=== PATIENT | male | born 1960 | race Two or more races ===

== ENCOUNTER 2022-09-17 05:35 | Day surgery (SDC) | payer OTHER ==
[~2022-09-17 05:35] MED LIST: COZAAR25 MG PO; TENORMIN25 MG PO
[2022-09-17] MEDS ORDERED: TRAM1TAB98 PO (08:34)
== END 2022-09-17 09:55 | disposition home or self-care (01) ==
LOC: CIR.AMB 05:35 → EDBD 11:00 → CIR.AMB 11:00
PROVIDERS: ATTEND Surgery
DX: C20 Malignant neoplasm of rectum (principal); K62.5 Hemorrhage of anus and rectum; R59.0 Localized enlarged lymph nodes; K59.09 Other constipation; I10 Essential (primary) hypertension; F17.210 Nicotine dependence, cigarettes, uncomplicated; Z20.822 Contact with and (suspected) exposure to COVID-19

== ENCOUNTER 2023-09-06 09:56 | Inpatient (IN) | payer OTHER ==
[~2023-09-06] VITALS: Ht 170.2 cm; Wt 79.4 kg
[~2023-09-06 09:56] MED LIST changes: +TRAM1TAB98 PO
[2023-09-13] MEDS ORDERED: METRONIDAZOLE/SODIUM CHLORIDE 500 MG/100 ML PIGGYBACK IV ONE ×2 (10:09→13:00)
[2023-09-13] MEDS ORDERED: CEFTRIAXONE SODIUM 2,000 MG VIAL ONE (10:09)
[2023-09-13] MEDS ORDERED: CEFTRIAXONE SODIUM 2,000 MG VIAL IV ONE (13:00)
[2023-09-13] MEDS ORDERED: VISTASEAL DUAL APPICATOR 1 EACH APPL TOP ONE (14:10)
[2023-09-13] MEDS ORDERED: THROMBIN,HU/FIBRINOGEN/CALCIUM 10 ML SYRINGE TOP ONE (14:10)
[2023-09-13] MEDS ORDERED: INSULIN LISPRO 1,000 UNIT/10 ML UNITS SUBCUTANEO PRN (15:15)
[2023-09-13] MEDS ORDERED: MORPHINE SULFATE 4 MG/ML VIAL IV PRN (15:15)
[2023-09-13] MEDS ORDERED: ONDANSETRON HCL 2 MG/ML VIAL IV PRN (15:15)
[2023-09-13] MEDS ORDERED: DEXTROSE 50 % IN WATER 0.5 G/ML DISP.SYRIN IV PRN (15:15)
[2023-09-13] MEDS ORDERED: RINGERS SOLUTION,LACTATED 1,000 ML IV SCH (15:15)
[2023-09-13] MEDS ORDERED: OxyCODONE HCL 5 MG TABLET (ROXICODONE) PO PRN (15:15)
[2023-09-13] MEDS ORDERED: ONDANSETRON HCL 2 MG/ML VIAL ONE (16:17)
[2023-09-13] MEDS ORDERED: GABAPENTIN 300 MG CAPSULE PO SCH (17:00)
[2023-09-13] MEDS ORDERED: HYOSCYAMINE SULFATE 0.125 MG TAB.SUBL SL SCH (17:00)
[2023-09-13] MEDS ORDERED: POLYETHYLENE GLYCOL 3350 17 GM BLIST.PACK PO SCH (17:00)
[2023-09-13] MEDS ORDERED: ENALAPRILAT DIHYDRATE 1.25 MG/ML VIAL IV PRN (17:30)
[2023-09-13] MEDS ORDERED: ALBUTEROL SULFATE 3 ML/2.5 MG AMPUL.NEB IH SCH (18:00)
[2023-09-13 19:52] LABS: HEMATOCRIT 38.7 % (39.0-48.0); HEMOGLOBIN 13.2 g/dL (13-16.00); MEAN CORPUSCULAR HEMOGLOBIN 28.3 pg (27.00-32.0); MEAN CORPUSCULAR HGB CONC 34.1 g/dl (32.0-36.0); PLATELET COUNT 154 K/uL (150-450); RED BLOOD COUNT 4.67 M/uL (4.00-6.00); RED CELL DISTRIBUTION WIDTH 14.5 % (11.5-14.5)
[2023-09-13 20:00] LABS: ALBUMIN 3.3 gm/dL (3.4-5.0); CALCIUM 8.1 mg/dL (8.5-10.1); CREATININE SERUM 0.97 mg/dL (0.70-1.30); GFR 77.92; MAGNESIUM 2.2 mg/dL (1.8-2.4); PHOSPHOROUS 3.3 mg/dL (2.5-4.9); POTASSIUM 3.85 mEq/L (3.5-5.1)
[2023-09-13] MEDS ORDERED: ACETAMINOPHEN 500 MG GEL..CAP PO SCH (20:00)
[2023-09-13] MEDS ORDERED: FAMOTIDINE/PF 20 MG/2 ML VIAL IV PUSH SCH (21:00)
[2023-09-13] MEDS ORDERED: CELECOXIB 200 MG CAPSULE PO SCH (21:00)
[2023-09-13] MEDS ORDERED: ALBUTEROL SULFATE 3 ML/2.5 MG AMPUL.NEB IH ONE (21:39)
[2023-09-13] MEDS ORDERED: FAMOTIDINE/PF 20 MG/2 ML VIAL ONE (21:39)
[2023-09-13 21:59] LABS: ABG PO2 72.7 mmHg (80-100); ABG pCO2 39.2 mmHg (35-45); BASE EXCESS 0.5 mmol/l; BICARBONATE 24.9 mmol/l (23-25); SaO2 94.7 %
[2023-09-13 22:00] LABS: Tco2 26.1 mmol/l; allen test SATISFACTORY; o2 21 %; puncture site RADIAL RIGHT
[2023-09-14 07:01] LABS: HEMATOCRIT 38.8 % (39.0-48.0); HEMOGLOBIN 13.2 g/dL (13-16.00); MEAN CELL VOLUME 83.8 fL (80.0-100.00); MEAN CORPUSCULAR HEMOGLOBIN 28.5 pg (27.00-32.0); PLATELET COUNT 158 K/uL (150-450); RED BLOOD COUNT 4.62 M/uL (4.00-6.00); RED CELL DISTRIBUTION WIDTH 14.2 % (11.5-14.5)
[2023-09-14 07:22] LABS: ALBUMIN 3.1 gm/dL (3.4-5.0); CALCIUM 8.1 mg/dL (8.5-10.1); CREATININE SERUM 0.83 mg/dL (0.70-1.30); GFR 93.27; MAGNESIUM 2.1 mg/dL (1.8-2.4); PHOSPHOROUS 3.7 mg/dL (2.5-4.9); POTASSIUM 4.01 mEq/L (3.5-5.1)
[2023-09-14] MEDS ORDERED: LOSARTAN POTASSIUM 25 MG TABLET PO SCH (09:00)
[2023-09-14] MEDS ORDERED: ATENOLOL 25 MG TABLET PO SCH (09:00)
[2023-09-14] MEDS ORDERED: TAMSULOSIN HCL 0.4 MG CAP PO SCH (09:00)
[2023-09-14] MEDS ORDERED: ALBUTEROL SULFATE 3 ML/2.5 MG AMPUL.NEB IH SCH (13:00)
[2023-09-14] MEDS ORDERED: ENOXAPARIN SODIUM 40 MG/0.4 ML SYRINGE SUBCUTANEO SCH (17:00)
[2023-09-15 04:59] LABS: HEMATOCRIT 38.8 % (39.0-48.0); HEMOGLOBIN 13.3 g/dL (13-16.00); MEAN CELL VOLUME 82.9 fL (80.0-100.00); MEAN CORPUSCULAR HEMOGLOBIN 28.3 pg (27.00-32.0); MEAN CORPUSCULAR HGB CONC 34.2 g/dl (32.0-36.0); PLATELET COUNT 167 K/uL (150-450); RED BLOOD COUNT 4.68 M/uL (4.00-6.00); RED CELL DISTRIBUTION WIDTH 14.9 % (11.5-14.5)
[2023-09-15 05:12] LABS: CALCIUM 8.4 mg/dL (8.5-10.1); CREATININE SERUM 0.88 mg/dL (0.70-1.30); GFR 87.18; MAGNESIUM 2.2 mg/dL (1.8-2.4); POTASSIUM 4.23 mEq/L (3.5-5.1)
[2023-09-15] MEDS ORDERED: ENOXAPARIN SODIUM 40 MG/0.4 ML SYRINGE SUBCUTANEO SCH (09:00)
[2023-09-16] MEDS ORDERED: METOCLOPRAMIDE HCL 5 MG/ML VIAL IV SCH (17:00)
[2023-09-17 07:19] LABS: HEMATOCRIT 37.9 % (39.0-48.0); HEMOGLOBIN 12.9 g/dL (13-16.00); MEAN CORPUSCULAR HGB CONC 34.1 g/dl (32.0-36.0); PLATELET COUNT 170 K/uL (150-450); RED BLOOD COUNT 4.46 M/uL (4.00-6.00); RED CELL DISTRIBUTION WIDTH 14.7 % (11.5-14.5)
[2023-09-17 07:38] LABS: ALBUMIN 2.7 gm/dL (3.4-5.0); CALCIUM 8.9 mg/dL (8.5-10.1); CREATININE SERUM 0.95 mg/dL (0.70-1.30); GFR 79.81; PHOSPHOROUS 4.2 mg/dL (2.5-4.9); POTASSIUM 4.3 mEq/L (3.5-5.1)
[2023-09-18] MEDS ORDERED: DEXTROSE 10 % IN WATER 500 ML IV SCH (09:45)
[2023-09-18 15:37] LABS: BILIRUBIN TOTAL 0.96 mg/dL (0.3-1.2); BILIRUBIN,CONJUGATED 0.34 mg/dL (0.0-0.2); BILIRUBIN,UNCONJUGATED 0.62 mg/dL (0.0-0.6); CALCIUM 8.8 mg/dL (8.5-10.1); CREATININE SERUM 0.88 mg/dL (0.70-1.30); GFR 87.18; POTASSIUM 4.02 mEq/L (3.5-5.1); TOTAL PROTEIN 6.3 gm/dL (6.4-8.2)
[2023-09-18] MEDS ORDERED: AMINO ACIDS 4.25 %/DEXTROSE 5% 1,000 ML PERIFERAL SCH (17:00)
[2023-09-20] MEDS ORDERED: 0.9 % SODIUM CHLORIDE 1,000 ML IV SCH (18:15)
[2023-09-21 06:18] LABS: HEMATOCRIT 39.9 % (39.0-48.0); HEMOGLOBIN 13.5 g/dL (13-16.00); MEAN CELL VOLUME 84.9 fL (80.0-100.00); MEAN CORPUSCULAR HEMOGLOBIN 28.7 pg (27.00-32.0); MEAN CORPUSCULAR HGB CONC 33.8 g/dl (32.0-36.0); PLATELET COUNT 189 K/uL (150-450); RED BLOOD COUNT 4.69 M/uL (4.00-6.00); RED CELL DISTRIBUTION WIDTH 14.9 % (11.5-14.5)
[2023-09-21 07:10] LABS: CALCIUM 8.1 mg/dL (8.5-10.1); CREATININE SERUM 0.79 mg/dL (0.70-1.30); GFR 98.74; MAGNESIUM 2.6 mg/dL (1.8-2.4); PHOSPHOROUS 3.5 mg/dL (2.5-4.9); POTASSIUM 3.85 mEq/L (3.5-5.1)
[2023-09-21] MEDS ORDERED: IOHEXOL 350 mgI/ML 50ML BOTT PO ONE (10:00)
[2023-09-23 05:59] LABS: HEMATOCRIT 38.2 % (39.0-48.0); MEAN CELL VOLUME 84.2 fL (80.0-100.00); MEAN CORPUSCULAR HEMOGLOBIN 28.6 pg (27.00-32.0); MEAN CORPUSCULAR HGB CONC 33.9 g/dl (32.0-36.0); PLATELET COUNT 193 K/uL (150-450); RED BLOOD COUNT 4.54 M/uL (4.00-6.00); RED CELL DISTRIBUTION WIDTH 14.7 % (11.5-14.5)
[2023-09-23 06:42] LABS: CALCIUM 8.1 mg/dL (8.5-10.1); CREATININE SERUM 0.68 mg/dL (0.70-1.30); GFR 117.4; MAGNESIUM 2.2 mg/dL (1.8-2.4); PHOSPHOROUS 3.2 mg/dL (2.5-4.9); POTASSIUM 3.62 mEq/L (3.5-5.1)
[2023-09-23] MEDS ORDERED: METOCLOPRAMIDE HCL 5 MG/ML VIAL IV SCH (09:00)
[2023-09-25] MEDS ORDERED: HYOSCYAMINE0.125 M1 SL (13:54)
== END 2023-09-25 15:04 | disposition home or self-care (01) | DRG 330 ==
LOC: O/R 09-13 07:23 → EDLOC 09-13 07:23 → SURH 09-13 07:23 → O/R 09-13 20:46 → SURH 09-13 20:47
PROVIDERS: Internal Medicine Geriatric Medicine; ADMIT Surgery; ATTEND Surgery
PROC: 0DBP4ZZ Excision of Rectum, Percutaneous Endoscopic Approach (ICD-10-PCS; 2023-09-13)
PROC: 0D1B4Z4 Bypass Ileum to Cutaneous, Percutaneous Endoscopic Approach (ICD-10-PCS; 2023-09-13)
PROC: 0DJD8ZZ Inspection of Lower Intestinal Tract, Via Natural or Artificial Opening Endoscopic (ICD-10-PCS; 2023-09-13)
PROC: 07BC4ZZ Excision of Pelvis Lymphatic, Percutaneous Endoscopic Approach (ICD-10-PCS; 2023-09-13)
PROC: 3E0F7GC Introduction of Other Therapeutic Substance into Respiratory Tract, Via Natural or Artificial Opening (ICD-10-PCS; 2023-09-13)
PROC: 0DTN4ZZ Resection of Sigmoid Colon, Percutaneous Endoscopic Approach (ICD-10-PCS; principal; 2023-09-13 13:00)
PROC: 0DH68UZ Insertion of Feeding Device into Stomach, Via Natural or Artificial Opening Endoscopic (ICD-10-PCS; 2023-09-17)
PROC: 02HV33Z Insertion of Infusion Device into Superior Vena Cava, Percutaneous Approach (ICD-10-PCS; 2023-09-20)
PROC: BW21YZZ Computerized Tomography (CT Scan) of Abdomen and Pelvis using Other Contrast (ICD-10-PCS; 2023-09-21)
DX: C20 Malignant neoplasm of rectum (principal); K62.5 Hemorrhage of anus and rectum; R59.0 Localized enlarged lymph nodes; K59.09 Other constipation; G47.30 Sleep apnea, unspecified; J45.998 Other asthma; I10 Essential (primary) hypertension

== ENCOUNTER 2024-01-26 10:39 | Inpatient (IN) | payer OTHER ==
[~2024-01-26] VITALS: Ht 170.2 cm; Wt 69.4 kg
[~2024-01-26 10:39] MED LIST changes: +HYOSCYAMINE0.125 M1 SL
[2024-02-03] MEDS ORDERED: LOSARTAN POTASS25 MG (11:15)
[2024-02-03] MEDS ORDERED: ATENOLOL25 MG (11:15)
[2024-02-03] MEDS ORDERED: PROVENTIL HFA6.7 GM (11:16)
[2024-02-03] MEDS ORDERED: OxyCODONE HCL 5 MG TABLET (ROXICODONE) PO PRN (13:00)
[2024-02-03] MEDS ORDERED: ONDANSETRON HCL 2 MG/ML VIAL IV PRN (13:00)
[2024-02-03] MEDS ORDERED: RINGERS SOLUTION,LACTATED 1,000 ML IV SCH (13:00)
[2024-02-03] MEDS ORDERED: DEXTROSE 50 % IN WATER 0.5 G/ML VIAL IV PRN (13:00)
[2024-02-03] MEDS ORDERED: MORPHINE SULFATE 4 MG/ML CARTRIDGE IV PRN (13:00)
[2024-02-03] MEDS ORDERED: METRONIDAZOLE/SODIUM CHLORIDE 500 MG/100 ML PIGGYBACK IV ONE (13:15)
[2024-02-03] MEDS ORDERED: CEFTRIAXONE SODIUM 2,000 MG VIAL IV ONE (13:15)
[2024-02-03] MEDS ORDERED: LIDOCAINE HCL 1%/EPINEPHRINE 20ML VIAL IJ ONE (13:15)
[2024-02-03] MEDS ORDERED: CHLORHEXIDINE GLUCONATE 120 ML BOTTLE TOP ONE (13:15)
[2024-02-03] MEDS ORDERED: DEXAMETHASONE SODIUM PHOSPHATE 4 MG/ML VIAL IV ONE (13:15)
[2024-02-03] MEDS ORDERED: VANCOMYCIN HCL 1,000 MG VIAL IV ONE (13:15)
[2024-02-03] MEDS ORDERED: ACETAMINOPHEN 500 MG GEL..CAP PO SCH (14:00)
[2024-02-03] MEDS ORDERED: ENALAPRILAT DIHYDRATE 1.25 MG/ML VIAL IV PRN (15:45)
[2024-02-03] MEDS ORDERED: GABAPENTIN 300 MG CAPSULE PO SCH (17:00)
[2024-02-03] MEDS ORDERED: POLYETHYLENE GLYCOL 3350 17 GM BLIST.PACK PO SCH (17:00)
[2024-02-03] MEDS ORDERED: METOCLOPRAMIDE HCL 5 MG/ML VIAL IV SCH (17:00)
[2024-02-03 17:17] LABS: HEMATOCRIT 39.1 % (39.0-48.0); HEMOGLOBIN 13.4 g/dL (13-16.00); MEAN CELL VOLUME 82.7 fL (80.0-100.00); MEAN CORPUSCULAR HEMOGLOBIN 28.4 pg (27.00-32.0); MEAN CORPUSCULAR HGB CONC 34.4 g/dl (32.0-36.0); PLATELET COUNT 159 K/uL (150-450); RED BLOOD COUNT 4.73 M/uL (4.00-6.00); RED CELL DISTRIBUTION WIDTH 14.4 % (11.5-14.5)
[2024-02-03 17:37] LABS: ALBUMIN 3.5 gm/dL (3.4-5.0); CALCIUM 8.5 mg/dL (8.5-10.1); CREATININE SERUM 0.91 mg/dL (0.70-1.30); GFR 83.61; MAGNESIUM 1.9 mg/dL (1.8-2.4); PHOSPHOROUS 3.4 mg/dL (2.5-4.9); POTASSIUM 3.84 mEq/L (3.5-5.1)
[2024-02-03] MEDS ORDERED: PIPERACILLIN/TAZOBACTAM SODIUM 3.375 GM in DEXTROSE 5 % IN WATER 100 ML IV SCH (18:00)
[2024-02-03] MEDS ORDERED: ALBUTEROL SULFATE 3 ML/2.5 MG AMPUL.NEB IH SCH (18:00)
[2024-02-03 18:49] LABS: ABG PH 7.393 (7.35-7.45); ABG PO2 159.8 mmHg (80-100); ABG pCO2 37.2 mmHg (35-45); BASE EXCESS -2.2 mmol/l; BICARBONATE 22.2 mmol/l (23-25); SaO2 99.4 %; Tco2 23.3 mmol/l
[2024-02-03] MEDS ORDERED: FAMOTIDINE/PF 20 MG/2 ML VIAL IV PUSH SCH (21:00)
[2024-02-03 23:09] LABS: allen test SATISFACTORY; o2 21 %; puncture site RADIAL RIGHT
[2024-02-04] MEDS ORDERED: ATENOLOL 25 MG TABLET PO SCH (09:00)
[2024-02-04] MEDS ORDERED: LOSARTAN POTASSIUM 25 MG TABLET PO SCH (09:00)
[2024-02-04 09:37] LABS: HEMATOCRIT 37.4 % (39.0-48.0); MEAN CELL VOLUME 82.4 fL (80.0-100.00); MEAN CORPUSCULAR HEMOGLOBIN 28.7 pg (27.00-32.0); MEAN CORPUSCULAR HGB CONC 34.9 g/dl (32.0-36.0); PLATELET COUNT 158 K/uL (150-450); RED BLOOD COUNT 4.54 M/uL (4.00-6.00); RED CELL DISTRIBUTION WIDTH 14.7 % (11.5-14.5)
[2024-02-04 09:54] LABS: ALBUMIN 3.2 gm/dL (3.4-5.0); CREATININE SERUM 0.88 mg/dL (0.70-1.30); GFR 86.91; MAGNESIUM 2.1 mg/dL (1.8-2.4); PHOSPHOROUS 3.9 mg/dL (2.5-4.9)
[2024-02-04] MEDS ORDERED: ENOXAPARIN SODIUM 40 MG/0.4 ML SYRINGE SUBCUTANEO SCH (17:00)
[2024-02-05 08:38] LABS: HEMATOCRIT 38.1 % (39.0-48.0); HEMOGLOBIN 13.1 g/dL (13-16.00); MEAN CELL VOLUME 82.5 fL (80.0-100.00); MEAN CORPUSCULAR HEMOGLOBIN 28.3 pg (27.00-32.0); MEAN CORPUSCULAR HGB CONC 34.3 g/dl (32.0-36.0); PLATELET COUNT 170 K/uL (150-450); RED BLOOD COUNT 4.62 M/uL (4.00-6.00); RED CELL DISTRIBUTION WIDTH 14.9 % (11.5-14.5)
[2024-02-05 08:48] LABS: CALCIUM 8.9 mg/dL (8.5-10.1); CREATININE SERUM 0.9 mg/dL (0.70-1.30); GFR 84.69; MAGNESIUM 2.2 mg/dL (1.8-2.4); PHOSPHOROUS 3.6 mg/dL (2.5-4.9); POTASSIUM 3.63 mEq/L (3.5-5.1)
[2024-02-05] MEDS ORDERED: ENOXAPARIN SODIUM 40 MG/0.4 ML SYRINGE SUBCUTANEO SCH (17:00)
[2024-02-06] MEDS ORDERED: ACETAMINOPHEN500 M2 PO (07:58)
[2024-02-06] MEDS ORDERED: NEURONTIN300 MG PO (07:58)
[2024-02-06] MEDS ORDERED: ACID REDUCER20 M1 PO (07:58)
[2024-02-06] MEDS ORDERED: INTESTINEX680 M1 PO (07:58)
== END 2024-02-06 11:41 | disposition home or self-care (01) | DRG 348 ==
LOC: O/R 02-03 08:18 → SURH 02-03 10:30
PROVIDERS: Internal Medicine Geriatric Medicine; ADMIT Surgery; ATTEND Surgery
PROC: 05PYX3Z Removal of Infusion Device from Upper Vein, External Approach (ICD-10-PCS; 2024-02-03)
PROC: 3E0F7GC Introduction of Other Therapeutic Substance into Respiratory Tract, Via Natural or Artificial Opening (ICD-10-PCS; 2024-02-03)
PROC: 4A12X4Z Monitoring of Cardiac Electrical Activity, External Approach (ICD-10-PCS; 2024-02-03)
PROC: 0DBB4ZZ Excision of Ileum, Percutaneous Endoscopic Approach (ICD-10-PCS; principal; 2024-02-03 10:30)
DX: C20 Malignant neoplasm of rectum (principal); K62.5 Hemorrhage of anus and rectum; R59.0 Localized enlarged lymph nodes; K59.09 Other constipation; J45.20 Mild intermittent asthma, uncomplicated; I10 Essential (primary) hypertension; G47.33 Obstructive sleep apnea (adult) (pediatric); Z43.2 Encounter for attention to ileostomy; Z92.3 Personal history of irradiation